=== PATIENT | male | born 1960 | race Caucasian/White ===

== ENCOUNTER 2020-12-19 22:09 | Inpatient (IN) | payer OTHER ==
[~2020-12-19] VITALS: Ht 162.6 cm; Wt 64.1 kg
[2020-12-19] MEDS ORDERED: FUROSEMIDE 40MG/4ML VIAL IV ONE (22:30)
[2020-12-19] MEDS ORDERED: NITROGLYCERIN 50MG PREMIX 250 ML IV ONE (22:30)
[2020-12-19] MEDS ORDERED: ASPIRIN 81MG TABLET PO ONE (22:30)
[2020-12-19 22:52] LABS: BG BASE EXCESS -4.8 mmol/L (-2.0-2.0); BG CARBOXYHEMOGLOBIN 0.3 % (0.5-1.5); BG DEOXYHEMOGLOBIN 0.8 % (0.0-5.0); BG FRACTION INSPIRED OXYGEN 100; BG HCO3 ACT 19.7 mmol/L (22.0-26.0); BG METHEMOGLOBIN 0.2 % (0.0-1.5); BG OXYGEN SATURATION 99.2 % (92.0-98.5); BG OXYHEMOGLOBIN 98.7 % (94.0-97.0); BG PCO2 34.4 mmHg (35.0-45.0); BG PH 7.375 (7.350-7.450); BG PO2 316.3 mmHg (75.0-100.0); BG SAMPLE SITE RIGHT RADIAL; BG VENT MODE MASK - CPAP
[2020-12-19 22:57] LABS: BASOPHILS % 0.6 % (0.0-2.0); EOSINOPHILS % 2.2 % (0.0-5.0); HEMATOCRIT. 34.2 % (42.0-52.0); HEMOGLOBIN. 11.5 g/dL (14.0-18.0); LYMPHOCYTES % 17.3 % (20.0-50.0); MEAN CORPUSCULAR HEMOGLOBIN 28.2 pg (28.0-32.0); MEAN PLATELET VOLUME 7.5 fl (7.4-10.4); MONOCYTES % 9.5 % (2.0-8.0); NEUTROPHILS % 70.4 % (40.0-76.0); PLATELET 245 x1000/uL (130-400); RED BLOOD CELL COUNT 4.07 mill/uL (4.7-6.1)
[2020-12-19 23:01] LABS: CHLORIDE 102 mEq/L (98-107)
[2020-12-19 23:04] LABS: INR 1.1; PROTHROMBIN TIME 11.4 sec (9.6-11.0)
[2020-12-20] VITALS (63 sets, daily range): BP systolic 85–181; BP diastolic 44–119
[2020-12-20] MEDS ORDERED: ONDANSETRON HCL 4MG/2ML INJ IV PRN (03:30)
[2020-12-20] MEDS ORDERED: DOCUSATE SODIUM 100MG CAPSULE PO PRN (03:30)
[2020-12-20] MEDS ORDERED: MORPHINE SULFATE 2 MG/ML CPJ (NOT FOR IM USE) IV PRN (03:30)
[2020-12-20] MEDS ORDERED: MAGNESIUM/ALUMINUM HYDROXIDE/SIMETHICONE 30ML UDC PO PRN (03:30)
[2020-12-20] MEDS ORDERED: ACETAMINOPHEN 325MG TABLET PO PRN (03:30)
[2020-12-20] MEDS ORDERED: HYDROCODONE/ACETAMINOPHEN 5/325MG TABLET PO PRN (03:30)
[2020-12-20] MEDS ORDERED: CLONIDINE 0.1MG TABLET PO PRN (03:30)
[2020-12-20] MEDS ORDERED: GUAIFENESIN 200MG/10ML SUGAR FREE UDC PO PRN (03:30)
[2020-12-20] MEDS ORDERED: NALOXONE HCL 0.4MG/ML VIAL IV PRN (04:00)
[2020-12-20] MEDS ORDERED: NITROGLYCERIN 50MG PREMIX 250 ML IV PRN (06:30)
[2020-12-20] MEDS ORDERED: LISINOPRIL 40MG TABLET PO SCH (09:00)
[2020-12-20] MEDS ORDERED: AMLODIPINE 10MG TABLET PO SCH (09:00)
[2020-12-20] MEDS: ENOXAPARIN 30MG/0.3ML SYR SUBCUT SCH (09:17)
[2020-12-20] MEDS: FUROSEMIDE 40MG/4ML VIAL IV SCH (09:17)
[2020-12-20] MEDS: ASPIRIN 81MG EC TABLET PO SCH (09:18)
[2020-12-20] MEDS ORDERED: HYDRALAZINE HCL 100MG TABLET PO SCH (09:30)
[2020-12-20] MEDS: HYDRALAZINE HCL 100MG TABLET PO SCH ×3 (09:43→21:39)
[2020-12-20] MEDS ORDERED: DEXTROSE 50% WATER 50ML SYRINGE IV PRN (10:30)
[2020-12-20 11:26] LABS: BASOPHILS % 0.4 % (0.0-2.0); EOSINOPHILS % 1.1 % (0.0-5.0); HEMATOCRIT. 29.1 % (42.0-52.0); HEMOGLOBIN. 10.4 g/dL (14.0-18.0); LYMPHOCYTES % 9.5 % (20.0-50.0); MEAN CORPUSCULAR VOLUME 83.8 fL (80.0-94.0); MEAN PLATELET VOLUME 7.4 fl (7.4-10.4); MONOCYTES % 9.1 % (2.0-8.0); NEUTROPHILS % 79.9 % (40.0-76.0); PLATELET 254 x1000/uL (130-400); RED BLOOD CELL COUNT 3.48 mill/uL (4.7-6.1); RED CELL DISTRIBUTION WIDTH 13.6 % (11.6-14.6)
[2020-12-20] MEDS: INSULIN LISPRO 100 UNITS/ML SUBCUT SCH ×3 (11:26→21:41)
[2020-12-20] MEDS: BLOOD SUGAR DIAGNOSTIC STRIP TEST SCH ×3 (11:27→21:39)
[2020-12-20 21:13] LABS: CLARITY URINE CLEAR (CLEAR); COLOR URINE YELLOW (YELLOW); KETONES URINE NEGATIVE (NEGATIVE); LEUKOCYTE ESTERASE URINE NEGATIVE (NEGATIVE); NITRITE URINE NEGATIVE (NEGATIVE); OCCULT BLOOD URINE NEGATIVE (NEGATIVE); PROTEIN URINE 2+ (NEGATIVE); SPECIFIC GRAVITY URINE 1.012 (1.005-1.030); UROBILINOGEN URINE 0.2 E.U./dL (0.2-1.0)
[2020-12-20 21:38] LABS: *AMPHETAMINES SCREEN URINE NEGATIVE (NEGATIVE); *BARBITURATES SCREEN URINE NEGATIVE (NEGATIVE); *BENZODIAZEPINES SCREEN URINE NEGATIVE (NEGATIVE); *COCAINE SCREEN URINE NEGATIVE (NEGATIVE)
[2020-12-20 21:39] LABS: CANNABINOID URINE SCREEN NEGATIVE (NEGATIVE); METHADONE URINE SCREEN NEGATIVE (NEGATIVE); OPIATES URINE SCREEN NEGATIVE (NEGATIVE); PHENCYCLIDINE URINE SCREEN NEGATIVE (NEGATIVE)
[2020-12-20] MEDS: AMLODIPINE 10MG TABLET PO SCH (21:39)
[2020-12-21] VITALS (43 sets, daily range): BP systolic 99–135; BP diastolic 39–62
[2020-12-21 05:52] LABS: BASOPHILS % 0.6 % (0.0-2.0); EOSINOPHILS % 1.1 % (0.0-5.0); LYMPHOCYTES % 13.5 % (20.0-50.0); MEAN CORPUSCULAR HEMOGLOBIN 29.3 pg (28.0-32.0); MEAN CORPUSCULAR VOLUME 82.1 fL (80.0-94.0); MEAN PLATELET VOLUME 7.5 fl (7.4-10.4); MONOCYTES % 9.9 % (2.0-8.0); NEUTROPHILS % 74.9 % (40.0-76.0); PLATELET 268 x1000/uL (130-400); RED BLOOD CELL COUNT 3.41 mill/uL (4.7-6.1); RED CELL DISTRIBUTION WIDTH 14.2 % (11.6-14.6)
[2020-12-21 06:05] LABS: CHLORIDE 104 mEq/L (98-107)
[2020-12-21 06:21] LABS: LDL CHOLESTEROL 72 mg/dL (5-100)
[2020-12-21 06:23] LABS: TOTAL IRON BINDING CAPACITY 267 ug/dL (250-450)
[2020-12-21 06:28] LABS: HDL CHOLESTEROL 46 mg/dL (40-59)
[2020-12-21] MEDS: HYDRALAZINE HCL 100MG TABLET PO SCH ×3 (06:51→23:28)
[2020-12-21] MEDS: INSULIN LISPRO 100 UNITS/ML SUBCUT SCH ×4 (08:20→21:44)
[2020-12-21] MEDS: BLOOD SUGAR DIAGNOSTIC STRIP TEST SCH ×4 (08:30→21:36)
[2020-12-21] MEDS: ENOXAPARIN 30MG/0.3ML SYR SUBCUT SCH (08:31)
[2020-12-21] MEDS: FUROSEMIDE 40MG/4ML VIAL IV SCH (08:32)
[2020-12-21] MEDS: ASPIRIN 81MG EC TABLET PO SCH (08:32)
[2020-12-21] MEDS: AMLODIPINE 10MG TABLET PO SCH ×2 (08:33→21:36)
[2020-12-21] MEDS: CARVEDILOL 3.125 MG TABLET PO SCH (21:36)
[2020-12-22] VITALS (12 sets, daily range): BP systolic 95–149; BP diastolic 44–67
[2020-12-22] MEDS: HYDRALAZINE HCL 100MG TABLET PO SCH ×2 (05:11→05:12)
[2020-12-22] MEDS ORDERED: ALBUMIN HUMAN 25GM/100ML (25%) IV ONE (05:30)
[2020-12-22 05:46] LABS: HEMATOCRIT. 28.7 % (42.0-52.0); MEAN CORPUSCULAR HEMOGLOBIN 28.9 pg (28.0-32.0); PLATELET 255 x1000/uL (130-400); RED BLOOD CELL COUNT 3.45 mill/uL (4.7-6.1); RED CELL DISTRIBUTION WIDTH 13.9 % (11.6-14.6)
[2020-12-22 06:28] LABS: PHOSPHORUS 4.9 mg/dL (2.5-4.9)
[2020-12-22] MEDS: BLOOD SUGAR DIAGNOSTIC STRIP TEST SCH ×4 (07:46→21:00)
[2020-12-22] MEDS: CARVEDILOL 3.125 MG TABLET PO SCH ×2 (08:25→21:02)
[2020-12-22] MEDS: AMLODIPINE 10MG TABLET PO SCH ×2 (08:25→21:02)
[2020-12-22] MEDS: ASPIRIN 81MG EC TABLET PO SCH (08:25)
[2020-12-22] MEDS: ENOXAPARIN 30MG/0.3ML SYR SUBCUT SCH (08:30)
[2020-12-22] MEDS: INSULIN LISPRO 100 UNITS/ML SUBCUT SCH ×4 (08:30→21:03)
[2020-12-22] MEDS ORDERED: FUROSEMIDE 40MG TABLET PO SCH (09:00)
[2020-12-22 13:01] LABS: PLATELET ESTIMATE NORMAL
[2020-12-22] MEDS: HYDRALAZINE HCL 50MG TABLET PO SCH ×2 (13:30→21:02)
[2020-12-23] VITALS (10 sets, daily range): BP systolic 109–143; BP diastolic 49–69
[2020-12-23] MEDS: HYDRALAZINE HCL 50MG TABLET PO SCH ×2 (05:21→14:02)
[2020-12-23 06:33] LABS: BASOPHILS % 0.8 % (0.0-2.0); EOSINOPHILS % 2.1 % (0.0-5.0); HEMATOCRIT. 29.4 % (42.0-52.0); HEMOGLOBIN. 10.3 g/dL (14.0-18.0); LYMPHOCYTES % 16.9 % (20.0-50.0); MEAN CORPUSCULAR HEMOGLOBIN 28.9 pg (28.0-32.0); MEAN CORPUSCULAR VOLUME 82.3 fL (80.0-94.0); MONOCYTES % 13.7 % (2.0-8.0); NEUTROPHILS % 66.5 % (40.0-76.0); PLATELET 274 x1000/uL (130-400); RED BLOOD CELL COUNT 3.57 mill/uL (4.7-6.1); RED CELL DISTRIBUTION WIDTH 13.9 % (11.6-14.6)
[2020-12-23 06:49] LABS: PHOSPHORUS 5.2 mg/dL (2.5-4.9)
[2020-12-23] MEDS: BLOOD SUGAR DIAGNOSTIC STRIP TEST SCH ×2 (08:28→12:06)
[2020-12-23] MEDS: CARVEDILOL 3.125 MG TABLET PO SCH (08:31)
[2020-12-23] MEDS: ASPIRIN 81MG EC TABLET PO SCH (08:31)
[2020-12-23] MEDS: ENOXAPARIN 30MG/0.3ML SYR SUBCUT SCH (08:31)
[2020-12-23] MEDS: AMLODIPINE 10MG TABLET PO SCH (08:32)
[2020-12-23] MEDS: INSULIN LISPRO 100 UNITS/ML SUBCUT SCH ×2 (08:33→12:18)
== END 2020-12-23 16:00 | disposition short-term general hospital (02) | DRG 291 ==
LOC: ER 22:09 → MICUSO 12-20 04:18 → CVICU 12-20 05:24 → 5EST 12-21 11:08
PROVIDERS: ADMIT Hospitalist; ATTEND Hospitalist
PROC: 5A09357 Assistance with Respiratory Ventilation, Less than 24 Consecutive Hours, Continuous Positive Airway Pressure (ICD-10-PCS; principal; 2020-12-19)
DX: I13.0 Hypertensive heart and chronic kidney disease with heart failure and stage 1 through stage 4 chronic kidney disease, or unspecified chronic kidney disease (principal); J96.01 Acute respiratory failure with hypoxia; E43 Unspecified severe protein-calorie malnutrition; I50.21 Acute systolic (congestive) heart failure; E87.1 Hypo-osmolality and hyponatremia; I16.1 Hypertensive emergency; N18.4 Chronic kidney disease, stage 4 (severe); D50.9 Iron deficiency anemia, unspecified; D63.8 Anemia in other chronic diseases classified elsewhere; E78.5 Hyperlipidemia, unspecified; I34.0 Nonrheumatic mitral (valve) insufficiency; D53.9 Nutritional anemia, unspecified; E11.22 Type 2 diabetes mellitus with diabetic chronic kidney disease; Z86.73 Personal history of transient ischemic attack (TIA), and cerebral infarction without residual deficits; Z68.24 Body mass index [BMI] 24.0-24.9, adult; Z83.3 Family history of diabetes mellitus; Z82.49 Family history of ischemic heart disease and other diseases of the circulatory system
CPT/HCPCS: 36415; 36600; 71045; 76770; 80048; 80053; 80061; 80305; 81003; 82375; 82805; 82962; 83036; 83540; 83550; 83605; 83735; 83880; 84100; 84484; 85025; 85044; 93005; 93306; 93970; 94660; 99291; J1650; J1815; J1940; J3490; A4315

== ENCOUNTER 2021-09-25 02:32 | Inpatient (IN) | payer OTHER ==
[~2021-09-25] VITALS: Ht 162.6 cm; Wt 63.5 kg
[2021-09-25] MEDS ORDERED: ASPIRIN 81MG TABLET PO ONE (02:45)
[2021-09-25] MEDS ORDERED: FUROSEMIDE 40MG/4ML VIAL IV ONE (02:45)
[2021-09-25] MEDS: NITROGLYCERIN 0.4MG TABLET SL SL PRN ×2 (03:00→03:05)
[2021-09-25 03:33] LABS: BASOPHILS % 0.4 % (0.0-2.0); EOSINOPHILS % 1.6 % (0.0-5.0); HEMATOCRIT. 32.1 % (42.0-52.0); HEMOGLOBIN. 11.1 g/dL (14.0-18.0); LYMPHOCYTES % 9.4 % (20.0-50.0); MEAN CORPUSCULAR HEMOGLOBIN 28.4 pg (28.0-32.0); MEAN CORPUSCULAR VOLUME 82.6 fL (80.0-94.0); MEAN PLATELET VOLUME 8.6 fl (7.4-10.4); MONOCYTES % 11.1 % (2.0-8.0); NEUTROPHILS % 77.5 % (40.0-76.0); PLATELET 200 x1000/uL (130-400); RED BLOOD CELL COUNT 3.89 mill/uL (4.7-6.1); RED CELL DISTRIBUTION WIDTH 14.6 % (11.6-14.6)
[2021-09-25 04:02] LABS: CHLORIDE 95 mEq/L (98-107)
[2021-09-25] MEDS ORDERED: DOCUSATE SODIUM 100MG CAPSULE PO PRN (11:00)
[2021-09-25] MEDS ORDERED: GUAIFENESIN 200MG/10ML SUGAR FREE UDC PO PRN (11:00)
[2021-09-25] MEDS ORDERED: ONDANSETRON HCL 4MG/2ML INJ IV PRN (11:00)
[2021-09-25] MEDS ORDERED: ACETAMINOPHEN 325MG TABLET PO PRN (11:00)
[2021-09-25] MEDS ORDERED: HYDROCODONE/ACETAMINOPHEN 5/325MG TABLET PO PRN (11:00)
[2021-09-25] MEDS ORDERED: NALOXONE HCL 0.4MG/ML VIAL IV PRN (11:15)
[2021-09-25] MEDS ORDERED: POTA-202 PO (11:50)
[2021-09-25] MEDS ORDERED: FURO20TA4 PO (11:50)
[2021-09-25] MEDS ORDERED: ATOR80TA PO (11:50)
[2021-09-25] MEDS ORDERED: CALC0.253 PO (11:50)
[2021-09-25] MEDS ORDERED: AMLO10TA4 PO (11:50)
[2021-09-25] MEDS ORDERED: ASPI-1497 PO (11:50)
[2021-09-25] MEDS ORDERED: COR6 PO (11:50)
[2021-09-25] MEDS ORDERED: HYDR-4135 PO (11:50)
[2021-09-25 12:00] VITALS: BP 130/73
[2021-09-25] MEDS: FUROSEMIDE 40MG/4ML VIAL IV SCH (12:41)
[2021-09-25] MEDS: CARVEDILOL 3.125 MG TABLET PO SCH ×2 (12:42→21:07)
[2021-09-25] MEDS: ENOXAPARIN 30MG/0.3ML SYR SUBCUT SCH (12:42)
[2021-09-25] MEDS ORDERED: HUM100IN SQ (13:07)
[2021-09-25 13:08] VITALS: BP 130/73
[2021-09-25] MEDS: AMLODIPINE 10MG TABLET PO SCH (13:26)
[2021-09-25] MEDS: CALCITRIOL 0.25MCG CAPSULE PO SCH (13:26)
[2021-09-25] MEDS: HYDRALAZINE HCL 10MG TABLET PO SCH ×2 (15:47→21:08)
[2021-09-25 16:00] VITALS: BP 128/72
[2021-09-25] MEDS ORDERED: DEXTROSE 50% WATER 50ML SYRINGE IV PRN (17:00)
[2021-09-25] MEDS: BLOOD SUGAR DIAGNOSTIC STRIP TEST SCH ×2 (17:23→21:02)
[2021-09-25] MEDS: POTASSIUM CHLORIDE 10MEQ TABLET SR PO SCH (17:47)
[2021-09-25 17:48] LABS: CLARITY URINE CLEAR (CLEAR); COLOR URINE YELLOW (YELLOW); KETONES URINE NEGATIVE (NEGATIVE); LEUKOCYTE ESTERASE URINE NEGATIVE (NEGATIVE); NITRITE URINE NEGATIVE (NEGATIVE); OCCULT BLOOD URINE NEGATIVE (NEGATIVE); PH URINE 6.5 (4.5-8.0); PROTEIN URINE 2+ (NEGATIVE); SPECIFIC GRAVITY URINE 1.011 (1.005-1.030); UROBILINOGEN URINE 0.2 E.U./dL (0.2-1.0)
[2021-09-25] MEDS: INSULIN LISPRO 100 UNITS/ML SUBCUT SCH ×2 (17:48→21:09)
[2021-09-25 18:01] LABS: *AMPHETAMINES SCREEN URINE NEGATIVE (NEGATIVE); *BARBITURATES SCREEN URINE NEGATIVE (NEGATIVE); *BENZODIAZEPINES SCREEN URINE NEGATIVE (NEGATIVE); *COCAINE SCREEN URINE NEGATIVE (NEGATIVE); CANNABINOID URINE SCREEN NEGATIVE (NEGATIVE); METHADONE URINE SCREEN NEGATIVE (NEGATIVE); OPIATES URINE SCREEN NEGATIVE (NEGATIVE); PHENCYCLIDINE URINE SCREEN NEGATIVE (NEGATIVE)
[2021-09-25 20:00] VITALS: BP 157/68
[2021-09-25] MEDS: ATORVASTATIN CALCIUM 40MG TABLET PO SCH (21:07)
[2021-09-26] VITALS: BP 134/58
[2021-09-26 04:00] VITALS: BP 111/61
[2021-09-26] MEDS: HYDRALAZINE HCL 10MG TABLET PO SCH ×3 (05:09→21:34)
[2021-09-26] MEDS: BLOOD SUGAR DIAGNOSTIC STRIP TEST SCH ×4 (06:03→21:35)
[2021-09-26 06:28] LABS: MEAN CORPUSCULAR HEMOGLOBIN 28.5 pg (28.0-32.0); MEAN CORPUSCULAR VOLUME 82.5 fL (80.0-94.0); MEAN PLATELET VOLUME 8.2 fl (7.4-10.4); PLATELET 186 x1000/uL (130-400); RED BLOOD CELL COUNT 3.14 mill/uL (4.7-6.1); RED CELL DISTRIBUTION WIDTH 14.3 % (11.6-14.6)
[2021-09-26 08:00] VITALS: BP 150/64
[2021-09-26 08:00] LABS: CHLORIDE 104 mEq/L (98-107)
[2021-09-26] MEDS: INSULIN LISPRO 100 UNITS/ML SUBCUT SCH ×4 (08:10→21:35)
[2021-09-26 08:16] LABS: HDL CHOLESTEROL 49 mg/dL (40-59); LDL CHOLESTEROL 51 mg/dL (5-100)
[2021-09-26] MEDS: CALCITRIOL 0.25MCG CAPSULE PO SCH (09:20)
[2021-09-26] MEDS: FUROSEMIDE 40MG/4ML VIAL IV SCH (09:20)
[2021-09-26] MEDS: POTASSIUM CHLORIDE 10MEQ TABLET SR PO SCH ×2 (09:21→17:38)
[2021-09-26] MEDS: CARVEDILOL 3.125 MG TABLET PO SCH ×2 (09:22→21:33)
[2021-09-26] MEDS: AMLODIPINE 10MG TABLET PO SCH (09:22)
[2021-09-26] MEDS ORDERED: POTASSIUM CHLORIDE 20MEQ TABLET SR PO NR (10:00)
[2021-09-26 12:00] VITALS: BP 157/67
[2021-09-26] MEDS: ENOXAPARIN 30MG/0.3ML SYR SUBCUT SCH (13:45)
[2021-09-26 16:00] VITALS: BP 150/62
[2021-09-26 20:00] VITALS: BP 136/58
[2021-09-26] MEDS: ATORVASTATIN CALCIUM 40MG TABLET PO SCH (21:34)
[2021-09-27] VITALS: BP_SYST 149; BP_SYST 160; BP_DIAS 58; BP_DIAS 94
[2021-09-27] MEDS: HYDRALAZINE HCL 10MG TABLET PO SCH (05:37)
[2021-09-27 07:49] LABS: PLATELET ESTIMATE NORMAL
[2021-09-27 08:00] VITALS: BP 164/71
[2021-09-27] MEDS: BLOOD SUGAR DIAGNOSTIC STRIP TEST SCH (08:18)
[2021-09-27] MEDS: FUROSEMIDE 40MG/4ML VIAL IV SCH (08:20)
[2021-09-27] MEDS: INSULIN LISPRO 100 UNITS/ML SUBCUT SCH (08:20)
[2021-09-27] MEDS: CARVEDILOL 3.125 MG TABLET PO SCH (08:21)
[2021-09-27] MEDS: CALCITRIOL 0.25MCG CAPSULE PO SCH (08:21)
[2021-09-27] MEDS: AMLODIPINE 10MG TABLET PO SCH (08:22)
[2021-09-27] MEDS: POTASSIUM CHLORIDE 10MEQ TABLET SR PO SCH (08:22)
[2021-09-27 10:33] VITALS: BP 154/67
== END 2021-09-27 11:43 | disposition home or self-care (01) | DRG 291 ==
LOC: ER 02:32 → 7WST 07:47 → EDBEDREQ 07:50 → EDBEDREQTM 07:50 → ENRESERV 10:10
PROVIDERS: ADMIT Hospitalist; ATTEND Hospitalist
DX: I13.0 Hypertensive heart and chronic kidney disease with heart failure and stage 1 through stage 4 chronic kidney disease, or unspecified chronic kidney disease (principal); I50.23 Acute on chronic systolic (congestive) heart failure; N17.9 Acute kidney failure, unspecified; I42.9 Cardiomyopathy, unspecified; D63.8 Anemia in other chronic diseases classified elsewhere; E11.22 Type 2 diabetes mellitus with diabetic chronic kidney disease; E78.5 Hyperlipidemia, unspecified; Z20.822 Contact with and (suspected) exposure to COVID-19; I07.1 Rheumatic tricuspid insufficiency; I27.20 Pulmonary hypertension, unspecified; N18.9 Chronic kidney disease, unspecified; R91.8 Other nonspecific abnormal finding of lung field; R09.02 Hypoxemia; Z79.82 Long term (current) use of aspirin; Z86.73 Personal history of transient ischemic attack (TIA), and cerebral infarction without residual deficits; Z79.899 Other long term (current) drug therapy
CPT/HCPCS: 36415; 71045; 80053; 80061; 80305; 81003; 82962; 83880; 84484; 85025; 87426; 93005; 93306; 93970; 99285; C9803; J1650; J1815; J1940

== ENCOUNTER 2022-02-09 01:51 | Emergency (ER) | payer OTHER ==
[~2022-02-09] VITALS: Ht 170.2 cm; Wt 68.0 kg
[~2022-02-09 01:51] MED LIST: AMLO10TA4 PO; ASPI-1497 PO; ATOR80TA PO; CALC0.253 PO; COR6 PO; FURO20TA4 PO; HUM100IN SQ; HYDR-4135 PO; POTA-202 PO
[2022-02-09] MEDS ORDERED: FUROSEMIDE 40MG/4ML VIAL IV ONE (02:15)
[2022-02-09 02:25] LABS: BASOPHILS % 0.5 % (0.0-2.0); EOSINOPHILS % 2.8 % (0.0-5.0); HEMATOCRIT. 34.2 % (42.0-52.0); HEMOGLOBIN. 11.6 g/dL (14.0-18.0); LYMPHOCYTES % 12.6 % (20.0-50.0); MEAN CORPUSCULAR HEMOGLOBIN 29.6 pg (28.0-32.0); MEAN CORPUSCULAR VOLUME 87.6 fL (80.0-94.0); MEAN PLATELET VOLUME 8.2 fl (7.4-10.4); MONOCYTES % 10.9 % (2.0-8.0); NEUTROPHILS % 73.2 % (40.0-76.0); PLATELET 161 x1000/uL (130-400); RED CELL DISTRIBUTION WIDTH 14.3 % (11.6-14.6)
[2022-02-09 02:31] LABS: CHLORIDE 100 mEq/L (98-107)
[2022-02-09 06:58] VITALS: BP 141/65
== END 2022-02-09 06:57 | disposition short-term general hospital (02) ==
LOC: ER 01:51
DX: I11.0 Hypertensive heart disease with heart failure (principal); I50.9 Heart failure, unspecified; R06.09 Other forms of dyspnea; E11.9 Type 2 diabetes mellitus without complications; Z86.73 Personal history of transient ischemic attack (TIA), and cerebral infarction without residual deficits; Z20.822 Contact with and (suspected) exposure to COVID-19; Z79.4 Long term (current) use of insulin; Z79.82 Long term (current) use of aspirin
CPT/HCPCS: 36415; 71045; 80053; 83605; 83880; 84484; 85025; 87040; 87426; 93005; 96374; 99291; C9803; J1940

== ENCOUNTER 2022-04-19 02:23 | Inpatient (IN) | payer OTHER ==
[~2022-04-19] VITALS: Ht 162.6 cm; Wt 65.0 kg
[~2022-04-19 02:23] MED LIST changes: +CETI10TA6 PO; +METO2.5T2 PO
[2022-04-19] MEDS ORDERED: NITROGLYCERIN OINT 1GM/INCH UDPKT TD ONE (03:00)
[2022-04-19] MEDS ORDERED: FUROSEMIDE 40MG/4ML VIAL IV ONE (03:00)
[2022-04-19] MEDS ORDERED: ASPIRIN 81MG TABLET PO ONE (03:00)
[2022-04-19 03:20] LABS: HEMATOCRIT. 30.5 % (42.0-52.0); HEMOGLOBIN. 10.7 g/dL (14.0-18.0); MEAN CORPUSCULAR HEMOGLOBIN 30.4 pg (28.0-32.0); PLATELET 181 x1000/uL (130-400); RED BLOOD CELL COUNT 3.51 mill/uL (4.7-6.1); RED CELL DISTRIBUTION WIDTH 14.7 % (11.6-14.6)
[2022-04-19 03:28] LABS: CHLORIDE 102 mEq/L (98-107)
[2022-04-19 05:08] LABS: D-DIMER 0.66 mg/L FEU (<0.50); INR 1.1; PARTIAL THROMBOPLASTIN TIME 27.9 sec (23.4-31.0); PROTHROMBIN TIME 11.4 sec (9.6-11.0)
[2022-04-19 08:48] LABS: PLATELET ESTIMATE NORMAL
[2022-04-19] MEDS ORDERED: ALBUTEROL (0.083%) 2.5MG/3ML NEB HHN PRN (14:00)
[2022-04-19] MEDS ORDERED: IPRATROPIUM BROMIDE (0.02%) 0.5MG/2.5ML NEB HHN PRN (14:00)
[2022-04-19] MEDS ORDERED: HYDRALAZINE 20MG/ML VIAL IV PRN (15:15)
[2022-04-19 21:00] VITALS: BP_SYST 175; BP_SYST 179; BP_DIAS 82; BP_DIAS 84
[2022-04-19] MEDS ORDERED: ONDANSETRON HCL 4MG/2ML INJ IV PRN (22:00)
[2022-04-19] MEDS ORDERED: ACETAMINOPHEN 325MG TABLET PO PRN (22:00)
[2022-04-19 22:24] VITALS: BP 166/77
[2022-04-19] MEDS: BLOOD SUGAR DIAGNOSTIC STRIP TEST SCH (22:40)
[2022-04-19] MEDS ORDERED: DEXTROSE 50% WATER 50ML SYRINGE IV PRN (22:45)
[2022-04-19] MEDS: METOLAZONE 2.5MG TABLET PO SCH (23:17)
[2022-04-19] MEDS: AMLODIPINE 10MG TABLET PO SCH (23:18)
[2022-04-19] MEDS: INSULIN LISPRO 100 UNITS/ML SUBCUT SCH (23:19)
[2022-04-19] MEDS: INSULIN GLARGINE 100 UNITS/ML SUBCUT SCH (23:20)
[2022-04-19] MEDS: ENOXAPARIN 30MG/0.3ML SYR SUBCUT SCH (23:22)
[2022-04-20] VITALS (10 sets, daily range): BP systolic 136–161; BP diastolic 65–78
[2022-04-20 00:41] LABS: CREATINE KINASE MB FRACTION 2.6 ng/mL (0.5-3.6)
[2022-04-20] MEDS: HYDRALAZINE HCL 50MG TABLET PO SCH ×3 (06:20→21:12)
[2022-04-20] MEDS: BLOOD SUGAR DIAGNOSTIC STRIP TEST SCH ×4 (06:49→20:57)
[2022-04-20] MEDS: INSULIN LISPRO 100 UNITS/ML SUBCUT SCH ×4 (07:03→21:12)
[2022-04-20 07:41] LABS: BASOPHILS % 0.3 % (0.0-2.0); EOSINOPHILS % 0.7 % (0.0-5.0); HEMATOCRIT. 29.2 % (42.0-52.0); HEMOGLOBIN. 10.4 g/dL (14.0-18.0); LYMPHOCYTES % 7.9 % (20.0-50.0); MEAN CORPUSCULAR HEMOGLOBIN 30.6 pg (28.0-32.0); MEAN CORPUSCULAR VOLUME 86.2 fL (80.0-94.0); MEAN PLATELET VOLUME 8.3 fl (7.4-10.4); MONOCYTES % 11.6 % (2.0-8.0); NEUTROPHILS % 79.5 % (40.0-76.0); PLATELET 180 x1000/uL (130-400); RED BLOOD CELL COUNT 3.39 mill/uL (4.7-6.1); RED CELL DISTRIBUTION WIDTH 14.3 % (11.6-14.6)
[2022-04-20 07:55] LABS: CREATINE KINASE MB FRACTION 1.9 ng/mL (0.5-3.6)
[2022-04-20] MEDS: CARVEDILOL 6.25 MG TABLET PO SCH ×2 (08:39→20:58)
[2022-04-20] MEDS: CALCITRIOL 0.25MCG CAPSULE PO SCH (08:40)
[2022-04-20] MEDS: ASPIRIN 81MG EC TABLET PO SCH (08:40)
[2022-04-20] MEDS: AMLODIPINE 10MG TABLET PO SCH (08:40)
[2022-04-20] MEDS: METOLAZONE 2.5MG TABLET PO SCH (08:40)
[2022-04-20] MEDS: POTASSIUM CHLORIDE 10MEQ TABLET SR PO SCH ×2 (08:40→18:12)
[2022-04-20] MEDS: ENOXAPARIN 30MG/0.3ML SYR SUBCUT SCH (20:58)
[2022-04-20] MEDS ORDERED: ATORVASTATIN CALCIUM 40MG TABLET PO SCH (21:00)
[2022-04-20] MEDS: INSULIN GLARGINE 100 UNITS/ML SUBCUT SCH (21:12)
[2022-04-21] VITALS: BP 112/56
[2022-04-21 04:00] VITALS: BP 131/67
[2022-04-21] MEDS: HYDRALAZINE HCL 50MG TABLET PO SCH ×2 (06:16→12:11)
[2022-04-21] MEDS: BLOOD SUGAR DIAGNOSTIC STRIP TEST SCH ×2 (06:20→11:50)
[2022-04-21] MEDS: INSULIN LISPRO 100 UNITS/ML SUBCUT SCH ×2 (06:20→12:10)
[2022-04-21 08:23] VITALS: BP 165/74
[2022-04-21] MEDS: POTASSIUM CHLORIDE 10MEQ TABLET SR PO SCH (08:33)
[2022-04-21] MEDS: ASPIRIN 81MG EC TABLET PO SCH (08:33)
[2022-04-21] MEDS: METOLAZONE 2.5MG TABLET PO SCH (08:33)
[2022-04-21] MEDS: CALCITRIOL 0.25MCG CAPSULE PO SCH (08:33)
[2022-04-21] MEDS: AMLODIPINE 10MG TABLET PO SCH (08:34)
[2022-04-21] MEDS: CARVEDILOL 6.25 MG TABLET PO SCH (08:34)
[2022-04-21 09:32] LABS: BG BASE EXCESS 1.3 mmol/L (-2.0-2.0); BG CARBOXYHEMOGLOBIN 0.3 % (0.5-1.5); BG DEOXYHEMOGLOBIN 2.7 % (0.0-5.0); BG FRACTION INSPIRED OXYGEN 28; BG HCO3 ACT 25.4 mmol/L (22.0-26.0); BG METHEMOGLOBIN 0.4 % (0.0-1.5); BG OXYGEN SATURATION 97.3 % (92.0-98.5); BG OXYHEMOGLOBIN 96.6 % (94.0-97.0); BG PCO2 38.1 mmHg (35.0-45.0); BG PH 7.442 (7.350-7.450); BG PO2 101.7 mmHg (75.0-100.0); BG SAMPLE SITE LEFT BRACHIAL; BG TOTAL HEMOGLOBIN 10.7 g/dL (12.0-18.0); BG VENT MODE NASAL CANNULA
[2022-04-21 12:14] VITALS: BP 145/65
[2022-04-21 16:25] VITALS: BP 144/71
[2022-04-21 16:33] VITALS: BP 144/71
== END 2022-04-21 17:54 | disposition home or self-care (01) | DRG 291 ==
LOC: ER 02:23 → MICUSO 06:29 → EDBEDREQTM 06:29 → EDBEDREQ 06:29 → 3WST 20:45
PROVIDERS: ADMIT Internal Medicine; ATTEND Internal Medicine
DX: I13.0 Hypertensive heart and chronic kidney disease with heart failure and stage 1 through stage 4 chronic kidney disease, or unspecified chronic kidney disease (principal); I50.33 Acute on chronic diastolic (congestive) heart failure; J96.01 Acute respiratory failure with hypoxia; N17.9 Acute kidney failure, unspecified; N18.4 Chronic kidney disease, stage 4 (severe); E11.22 Type 2 diabetes mellitus with diabetic chronic kidney disease; D63.1 Anemia in chronic kidney disease; E11.65 Type 2 diabetes mellitus with hyperglycemia; Z20.822 Contact with and (suspected) exposure to COVID-19; E78.00 Pure hypercholesterolemia, unspecified; K21.9 Gastro-esophageal reflux disease without esophagitis; Z86.73 Personal history of transient ischemic attack (TIA), and cerebral infarction without residual deficits; Z83.3 Family history of diabetes mellitus
CPT/HCPCS: 36415; 36600; 71045; 71250; 76770; 78582; 80048; 80053; 82375; 82550; 82553; 82805; 82962; 83036; 83880; 84484; 85025; 85379; 87426; 93005; 93306; 93970; 99285; A9558; C9803; J0360; J1650; J1815; J1940